=== PATIENT | male | born 1995 | race Caucasian/White ===

== ENCOUNTER 2017-10-19 00:21 | Emergency (ER) | payer MEDICAID ==
[2017-10-19] MEDS: ONDANSETRON 4 MG INJ IV (01:27)
[2017-10-19] MEDS: SOD CHLORIDE 0.9% 500 ML IV (01:28)
[2017-10-19] MEDS: morphine 10 MG INJ IM (01:28)
[2017-10-19] MEDS: SOD CHLORIDE 0.9% 100 ML (01:55)
[2017-10-19] MEDS: IOHEXOL 300MG/ML 150 ML BTL (01:55)
[2017-10-19 02:02] LABS: ALANINE AMINOTRANSFERASE 31 IU/L (13-69); ALBUMIN 4.7 g/dl (3.3-4.9); ALKALINE PHOSPHATASE 92 IU/L (42-121); ANION GAP 20 (8-16); ASPARTATE AMINO TRANSFERASE 33 IU/L (15-46); BILIRUBIN,INDIRECT 0.5 mg/dl (0-1.1); BILIRUBIN,TOTAL 0.5 mg/dl (0.2-1.3); BLOOD UREA NITROGEN 11 mg/dl (7-20); CALCIUM 9.9 mg/dl (8.4-10.2); CARBON DIOXIDE 26 mmol/L (21-31); CHLORIDE 100 mmol/L (97-110); CREATININE 1.04 mg/dl (0.61-1.24); GLUCOSE 98 mg/dl (70-220); LIPASE 106 U/L (23-300); POTASSIUM 3.5 mmol/L (3.5-5.1); SODIUM 142 mmol/L (135-144); TOTAL PROTEIN 8.3 g/dl (6.1-8.1)
== END 2017-10-19 08:01 | disposition home or self-care (01) ==
LOC: E/R 00:21
DX: S20.229A Contusion of unspecified back wall of thorax, initial encounter (principal); S09.90XA Unspecified injury of head, initial encounter; R93.0 Abnormal findings on diagnostic imaging of skull and head, not elsewhere classified; Y04.8XXA Assault by other bodily force, initial encounter
CPT/HCPCS: 70450; 70486; 71260; 72125; 72128; 73130-RT; 80048; 80076; 83690; 96372; 96374; 99285-25